=== PATIENT | male | born 2000 | race Caucasian/White ===

== ENCOUNTER 2020-01-08 16:06 | Emergency (ER) | payer BC, SELFPAY ==
[2020-01-08 16:54] VITALS: BP 129/76; PULSE 76; RESP 17; TEMP 36.6; O2SAT 98; BMI 39.7
--- NOTE | 2020-01-08 17:06 | HMH.EDUTC ---
[facility] Disposition Clinical Impression: Encounter for laboratory testing for COVID-19 virus Otitis media Qualifiers: Otitis media type: unspecified Laterality: bilateral Qualified Code(s): H66.93 - Otitis media, unspecified, bilateral Disposition: Home, Self-Care Condition on Discharge: Good Instructions: Middle Ear Infection, Middle Ear Infections (Alternative Therapy), Amoxicillin, Preventing the Spread of Coronavirus Discharge Instructions Additional Instructions: You was given handout with instructions for Self Quarantine and Self isolation while waiting your COVID test results and what to do if they are positive Take medications as prescribed Call back to [facility] on Monday to see if your results are back and if they are positive or negative Return if needed Straight to ER if any life threatening symptoms Follow up with Family doctor if needed Referrals: PCP,No [Primary Care Provider] - As needed Forms: Work/School Release Time of Disposition: 17:10 Medical Decision Making - Satish Inquiry Pt receiving controlled substance: No Satish was queried for this patient: No Vital Signs: 01/08/20 16:54 Temperature 97.8 F Temperature Source Oral Pulse Rate [Right Brachial] 76 Respiratory Rate 17 Blood Pressure [Right Arm] 129/76 Blood Pressure Mean [Right Arm] 93 Blood Pressure Source [Right Arm] Automatic Cuff Blood Pressure Position [Right Arm] Sitting 02 Sat by Pulse Oximetry 98 Oxygen Delivery Method Room Air Orders (Tests/Meds): ORDERS Category Date Time Status SARS-CoV-2, [facility] Stat Lab 01/08/20 16:52 Received [facility] HPI - General Stated complaint: covid testing Time Seen by Provider: 01/08/20 17:06 Mode of Arrival: Ambulatory Source of Information: Patient Limitations: No Limitations Description of Symptoms (Recalled from Triage Doc. by RN): PATIENT REQUESTING COVID TEST; STATES IT IS REQUIRED TO RETURN TO [employer] Symptoms (Recalled from RN notes): No Resp Symptoms (Recalled from RN notes): No Skin Symptoms (Recalled from RN notes): No MS Symptoms (Recalled from RN notes): No Functional Status (Recalled from RN notes): WNL - History of Present Illness Provider Complaint: Patient states that he has to get a COVID test before he can return to [employer] States that they told him that he would not be permitted to start classes without it States that also been having some sinus congestion and pressure like feeling in his ears - Related Data Allergies Allergy/AdvReac Type Severity Reaction Status Date / Time cetirizine [From [facility]] Allergy Verified 01/08/20 17:01 - Worker's Comp Is this a Worker's Comp case?: No [facility] History - Hepatitis A Screen Drug use history?: No High risk sexual behaviors?: No History of sexually transmitted infection?: No Currently employed?: No Childcare worker?: No Do you have indoor plumbing?: Yes Do you have electricity?: Yes Attestation statement:: This patient has been screened for Hepatitis A risk factors. I have reviewed the patient's past medical history: Yes - Social History Alcohol Intake: never Occupational Status: other ROS Obtained: Yes All systems reviewed & no additional complaints, Yes Systems reviewed as appropriate & no additional complaints - Constitutional Constitutional: Reports system reviewed and no additional complaints, except as docu - Eyes Eyes: Reports system reviewed and no additional complaints, except as docu - ENT Ears, Nose, Mouth, and Throat: Reports otalgia, Reports sinus pain, Reports sinus pressure, Denies sore throat - Cardiovascular Cardiovascular: Reports system reviewed and no additional complaints, except as docu - Respiratory Respiratory: Yes system reviewed and no additional complaints, except as docu - Gastrointestinal Gastrointestingal: Reports: system reviewed and no additional complaints, except as docu Physical Exam - General General appearance: alert, in no apparent distress -
[2020-01-08 17:13] VITALS: BP 129/76; PULSE 76; RESP 17; TEMP 36.6; O2SAT 98
[2020-01-11 09:03] LABS: Covid-19 Nasal PCR Sendout Lex NOT DETECTED
== END 2020-01-08 17:18 | disposition home or self-care (01) ==
PROVIDERS: Emergency Provider Nurse Practitioner
DX: Z20.828 Contact with and (suspected) exposure to other viral communicable diseases (principal); H66.93 Otitis media, unspecified, bilateral; Z88.8 Allergy status to other drugs, medicaments and biological substances
CPT/HCPCS: 99201; U0004